=== PATIENT | female | born 1950 | race Native Hawaiian/Other Pacific Islander ===

== ENCOUNTER 2022-04-29 13:21 | Emergency (ER) | payer OTHER, MEDICARE ==
[~2022-04-29] VITALS: Ht 154.9 cm; Wt 61.2 kg
[2022-04-29 13:21] VITALS: TEMP 98
[2022-04-29 14:31] LABS: POTASSIUM 3.6 mmol/L (3.6-5.2)
[2022-04-29 14:41] LABS: PLATELET COUNT 400 K/uL (152-353)
[2022-04-29 15:22] VITALS: BP 127/67
== END 2022-04-29 15:22 | disposition home or self-care (01) ==
LOC: ED 13:21
PROVIDERS: Emergency Medicine
DX: R09.02 Hypoxemia (principal)
CPT/HCPCS: 80048; 84484; 85027; 93005; 99283

== ENCOUNTER 2022-05-05 10:40 | Emergency (ER) | payer OTHER, MEDICARE ==
[~2022-05-05] VITALS: Ht 154.9 cm; Wt 61.2 kg
[2022-05-05 11:50] LABS: PLATELET COUNT 523 K/uL (152-353)
[2022-05-05 12:00] LABS: POTASSIUM 3.5 mmol/L (3.6-5.2)
[2022-05-05 14:00] VITALS: BP 133/61; TEMP 98
== END 2022-05-05 14:00 | disposition home or self-care (01) ==
LOC: ED 10:40
PROVIDERS: Emergency Medicine Emergency Medical Services
DX: R07.89 Other chest pain (principal)
CPT/HCPCS: 80053; 83735; 84484; 85027; 85610; 93005; 96360; 99284